=== PATIENT | male | born 1985 | race Two or more races ===

== ENCOUNTER 2016-07-20 00:56 | Emergency (ER) | payer BC, MEDICAID ==
--- NOTE | 2016-07-20 01:31 | EDM.PDOC ---
ED HPI GI/ABDOMINAL - General Chief Complaint: Gastrointestinal Problem Stated Complaint: VOMITING Time Seen by Provider: 07/20/16 01:25 Source: Reports: Patient History Limitations: Reports: No limitations - History of Present Illness INITIAL COMMENTS - FREE TEXT/NARRATIVE: This man came in complaining that today he's had some diarrhea and vomiting and a little bit of fever. He's had a cough for just a couple of days. He thinks maybe he has the flu. He is really here because he wants a work excuse said he missed work today. He feels like he can go back to work tomorrow and I think that to mean later today - Related Data Allergies/ADRs: Allergies Allergy/AdvReac Type Severity Reaction Status Date / Time No Known Allergies Allergy Verified 07/20/16 01:10 Home Meds: Home Meds Albuterol [Ventolin HFA] 2 puff INH Q4H PRN 06/20/16 [History] Acetaminophen 650 mg PO QID PRN 07/05/16 [History] Past Medical History Respiratory History: Reports: Asthma Genitourinary History: Reports: Renal calculus - Infectious Disease History Infectious Disease History: Reports: Chicken pox Social & Family History - Tobacco Use Smoking Status *Q: Current Some Day Smoker Years of Tobacco use: 10 Packs/Tins Daily: 0.5 Used Tobacco, but Quit: No Second Hand Smoke Exposure: Yes - Caffeine Use Caffeine Use: Reports: Coffee, Soda - Alcohol Use Days Per Week of Alcohol Use: 0 Number of Drinks Per Day: 1 Total Drinks Per Week: 0 - Recreational Drug Use Recreational Drug Use: No - Living Situation & Occupation Occupation: employed (R[employer] ED ROS GENERAL - Review of Systems Review Of Systems: ROS reveals no pertinent complaints other than HPI. ED EXAM, GI/ABD - Physical Exam Exam: See Below Exam Limited By: No limitations General Appearance: alert, WD/WN, no apparent distress Eyes: bilateral: normal appearance Throat/Mouth: Normal oropharynx Respiratory/Chest: lungs clear, other Cardiovascular: no murmur GI/Abdominal: non tender Neurological: alert, oriented Psychiatric: normal affect Skin Exam: Warm, Dry Course - Vital Signs Last Recorded V/S: Last Vital Signs Temp 36.6 C 07/20/16 01:15 Pulse 117 H 07/20/16 01:15 Resp 16 07/20/16 01:15 BP 144/101 H 07/20/16 01:15 Pulse Ox 99 07/20/16 01:15 Departure - Departure Time of Disposition: 01:30 Disposition: Home, Self-Care 01 Condition: fair Clinical Impression: Gastroenteritis Instructions: Viral Gastroenteritis, Adult Referrals: PCP,None [Primary Care Provider] - Forms: ED Department Discharge Additional Instructions: Rest drink plenty of liquids. Use Tylenol for aches and pains. Return to work as a measure feeling better
[2016-07-20 01:52] VITALS: BP 144/101
== END 2016-07-20 01:37 | disposition home or self-care (01) ==
LOC: JP.ED 00:56
DX: K52.9 Noninfective gastroenteritis and colitis, unspecified (principal); J45.909 Unspecified asthma, uncomplicated; F17.210 Nicotine dependence, cigarettes, uncomplicated
CPT/HCPCS: 99284

== ENCOUNTER 2016-08-16 21:53 | Emergency (ER) | payer BC, MEDICAID ==
[2016-08-16 22:28] VITALS: BP 130/81
--- NOTE | 2016-08-16 23:04 | EDM.PDOC ---
[id number] Time Seen by Provider: 08/16/16 22:45 Source: Reports: Patient History Limitations: Reports: No limitations - History of Present Illness INITIAL COMMENTS - FREE TEXT/NARRATIVE: 31-year-old male with chronic recurring dental problems has a recent first molar fracture of the left maxilla. He was too painful to go to work tonight. No facial swelling or fever. Severity: moderate Associated symptoms: Denies: fever/chills, nausea/vomiting - Related Data Allergies/ADRs: Allergies Allergy/AdvReac Type Severity Reaction Status Date / Time No Known Allergies Allergy Verified 08/16/16 22:45 Home Meds: Home Meds Albuterol [Ventolin HFA] 2 puff INH Q4H PRN 06/20/16 [History] Acetaminophen 650 mg PO QID PRN 07/05/16 [History] Past Medical History Respiratory History: Reports: Asthma Genitourinary History: Reports: Renal calculus - Infectious Disease History Infectious Disease History: Reports: Chicken pox Social & Family History - Tobacco Use Smoking Status *Q: Current Every Day Smoker Years of Tobacco use: 19 Packs/Tins Daily: 0.5 Used Tobacco, but Quit: No Second Hand Smoke Exposure: Yes - Caffeine Use Caffeine Use: Reports: Soda - Alcohol Use Days Per Week of Alcohol Use: 0 Number of Drinks Per Day: 1 Total Drinks Per Week: 0 - Recreational Drug Use Recreational Drug Use: No - Living Situation & Occupation 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 He does have what appears to be a recent fracture of the first molar left maxilla) Course - Vital Signs Last Recorded V/S: Last Vital Signs Temp 96.0 F 08/16/16 22:26 Pulse 90 08/16/16 22:26 Resp 16 08/16/16 22:26 BP 130/81 08/16/16 22:26 Pulse Ox 98 08/16/16 22:26 - Re-Assessments/Exams Free Text/Narrative Re-Assessment/Exam: 08/16/16 23:02 Patient will be placed on penicillin VK 4 times daily, encouraged to take ibuprofen or naproxen and he was given 10 hydrocodone for extra pain control. He needs to see a dentist Departure - Departure Time of Disposition: 23:32 Disposition: Home, Self-Care 01 Condition: good Clinical Impression: Pain due to dental caries Instructions: Dental Abscess, [id number], Tooth Injuries Referrals: PCP,None [Primary Care Provider] - Forms: ED Department Discharge Care Plan Goals: Take antibiotic 4 times a day, ibuprofen or naproxen will help and add stronger pain medication if needed. You need to see a dentist as soon as possible.
== END 2016-08-16 23:15 | disposition home or self-care (01) ==
LOC: JP.ED 21:53
DX: K02.9 Dental caries, unspecified (principal); J45.909 Unspecified asthma, uncomplicated; F17.210 Nicotine dependence, cigarettes, uncomplicated; Z87.442 Personal history of urinary calculi
CPT/HCPCS: 99283

== ENCOUNTER 2016-09-16 18:24 | Emergency (ER) | payer BC, MEDICAID ==
[2016-09-16 18:54] VITALS: BP 153/84
--- NOTE | 2016-09-16 19:15 | EDM.PDOC ---
ED HPI ENT - General Chief Complaint: ENT Problem Stated Complaint: TOOTHACHE Time Seen by Provider: 09/16/16 19:05 Source: Reports: Patient History Limitations: Reports: No limitations - History of Present Illness INITIAL COMMENTS - FREE TEXT/NARRATIVE: 31-year-old male with recurrent dental problems has an acute flare of his left maxillary molars over the past 1 to 2 days. He needs to go to the dentist tomorrow and needs a note to be off work. No fevers or chills, no swelling. Severity: mild Quality: Reports: Ache - Related Data Allergies/ADRs: Allergies Allergy/AdvReac Type Severity Reaction Status Date / Time No Known Allergies Allergy Verified 09/16/16 18:47 Home Meds: Home Meds Albuterol [Ventolin HFA] 2 puff INH Q4H PRN 06/20/16 [History] Acetaminophen 650 mg PO QID PRN 07/05/16 [History] Past Medical History Respiratory History: Reports: Asthma Genitourinary History: Reports: Renal calculus - Infectious Disease History Infectious Disease History: Reports: Chicken pox Social & Family History - Tobacco Use Smoking Status *Q: Current Every Day Smoker Years of Tobacco use: 11 Packs/Tins Daily: 0.5 Used Tobacco, but Quit: No Second Hand Smoke Exposure: Yes - Caffeine Use Caffeine Use: Reports: Coffee, Soda - Alcohol Use Days Per Week of Alcohol Use: 2 Number of Drinks Per Day: 2 Total Drinks Per Week: 4 - Recreational Drug Use Recreational Drug Use: No - Living Situation & Occupation Occupation: employed (R[employer] ED ROS ENT - Review of Systems Review Of Systems: See Below Constitutional: Denies: fever Respiratory: Denies: Shortness of Breath GI/Abdominal: Denies: Abdominal pain, Nausea, Vomiting Neurological: Reports: Headache ED EXAM, ENT - Physical Exam Exam: See Below Exam Limited By: No limitations General Appearance: alert, no apparent distress Mouth/Throat: Other (The left second molar is deeply decayed and there is some erythema around the tooth) Course - Vital Signs Last Recorded V/S: Last Vital Signs Temp 97.7 F 09/16/16 18:52 Pulse 102 H 09/16/16 18:52 Resp 16 09/16/16 18:52 BP 153/84 H 09/16/16 18:52 Pulse Ox 97 09/16/16 18:52 - Re-Assessments/Exams Free Text/Narrative Re-Assessment/Exam: 09/16/16 19:14 Patient was placed on penicillin 500 mg 4 times a day, given 6 hydrocodone to take tonight and he is going to go to the dentist tomorrow. He was also supplied a work note. Departure - Departure Time of Disposition: 19:19 Disposition: Home, Self-Care 01 Condition: good Clinical Impression: Dental caries, Dental abscess Instructions: Dental Caries, Dental Abscess, [id number] Referrals: PCP,None [Primary Care Provider] - Forms: ED Department Discharge Care Plan Goals: Take medications as prescribed and see the dentist tomorrow if possible
== END 2016-09-16 19:19 | disposition home or self-care (01) ==
LOC: JP.ED 18:24
DX: K04.7 Periapical abscess without sinus (principal); K02.9 Dental caries, unspecified; F17.210 Nicotine dependence, cigarettes, uncomplicated; J45.909 Unspecified asthma, uncomplicated
CPT/HCPCS: 99283

== ENCOUNTER 2016-10-26 16:52 | Emergency (ER) | payer BC, MEDICAID ==
[2016-10-26 17:14] VITALS: BP 159/98
--- NOTE | 2016-10-26 17:33 | EDM.PDOC ---
ED HPI GENERAL MEDICAL PROBLEM - General Chief Complaint: Gastrointestinal Problem Stated Complaint: ILLNESS Time Seen by Provider: 10/26/16 17:30 Source of Information: Reports: Patient History Limitations: Reports: No Limitations - History of Present Illness INITIAL COMMENTS - FREE TEXT/NARRATIVE: Pt with report of diarrhea x 3 today. C/O abdominal cramping. Denies fever or dizziness. Needs a note for work. Denies nausea or vomiting. Onset: Today Duration: Intermittent Location: Reports: Abdomen Quality: Reports: Other (cramping) Severity: Mild Improves with: Reports: None Worsens with: Reports: Eating Associated Symptoms: Reports: No Other Symptoms Abdominal Pain Score (Numeric/FACES): 2 - Related Data Allergies Allergy/AdvReac Type Severity Reaction Status Date / Time No Known Allergies Allergy Verified 10/26/16 17:27 Home Meds: Home Meds Albuterol [Ventolin HFA] 2 puff INH Q4H PRN 06/20/16 [History] Past Medical History Respiratory History: Reports: Asthma Genitourinary History: Reports: Renal Calculus - Infectious Disease History Infectious Disease History: Reports: Chicken Pox Social & Family History - Tobacco Use Smoking Status *Q: Current Every Day Smoker Years of Tobacco use: 11 Packs/Tins Daily: 0.5 Used Tobacco, but Quit: No Second Hand Smoke Exposure: Yes - Caffeine Use Caffeine Use: Reports: Coffee, Soda - Alcohol Use Days Per Week of Alcohol Use: 2 Number of Drinks Per Day: 2 Total Drinks Per Week: 4 - Recreational Drug Use Recreational Drug Use: No - Living Situation & Occupation Occupation: Employed ED ROS GENERAL - Review of Systems Review Of Systems: See Below Constitutional: Reports: No Symptoms HEENT: Reports: No Symptoms Respiratory: Reports: No Symptoms Cardiovascular: Reports: No Symptoms GI/Abdominal: Reports: Diarrhea, Other (cramping) : Reports: No Symptoms Musculoskeletal: Reports: No Symptoms ED EXAM, GI/ABD - Physical Exam Exam: See Below Exam Limited By: No Limitations General Appearance: Alert, WD/WN, No Apparent Distress Throat/Mouth: Normal Inspection, Normal Lips, Normal Teeth, Normal Gums, Normal Oropharynx, Normal Voice, No Airway Compromise Head: Atraumatic, Normocephalic Neck: Normal Inspection, Supple, Non-Tender, Full Range of Motion Respiratory/Chest: No Respiratory Distress, Lungs Clear, Normal Breath Sounds, No Accessory Muscle Use, Chest Non-Tender Cardiovascular: Normal Peripheral Pulses, Regular Rate, Rhythm, No Edema, No Gallop, No JVD, No Murmur, No Rub GI/Abdominal: Normal Bowel Sounds, Soft, Non-Tender, No Organomegaly, No Distention, No Abnormal Bruit, No Mass Course - Vital Signs Last Recorded V/S: Last Vital Signs Temp 97.9 F 10/26/16 17:35 Pulse 92 10/26/16 17:35 Resp 20 10/26/16 17:35 BP 159/98 H 10/26/16 17:35 Pulse Ox 100 10/26/16 17:35 - Orders/Labs/Meds Labs: Laboratory Tests 10/26/16 10/26/16 Range/Units 17:29 17:29 WBC 7.4 (4.5-11.0) K/uL RBC 5.40 (4.30-5.90) M/uL Hgb 17.0 H (12.0-15.0) g/dL Hct 48.0 (40.0-54.0) % MCV 89 (80-98) fL MCH 32 H (27-31) pg MCHC 35 (32-36) % Plt Count 216 (150-400) K/uL Neut % (Auto) 47 (36-66) % Lymph % (Auto) 39 (24-44) % Mobile % (Auto) 11 H (2-6) % Eos % (Auto) 2 (2-4) % Baso % (Auto) 1 (0-1) % Sodium 139 L (140-148) mmol/L Potassium 3.8 (3.6-5.2) mmol/L Chloride 107 (100-108) mmol/L Carbon Dioxide 23 (21-32) mmol/L Anion Gap 12.8 (5.0-14.0) mmol/L Departure - Departure Time of Disposition: 17:59 Disposition: Home, Self-Care 01 Condition: good Clinical Impression: Diarrhea Qualifiers: Diarrhea type: presumed infectious Qualified Code(s): A09 - Infectious gastroenteritis and colitis, unspecified - Discharge Information Instructions: Dehydration, Adult, [id number] Referrals: PCP,None [Primary Care Provider] - Forms: ED Department Discharge Additional Instructions: CBC WNL, Lytes with sodium at 139. Encouraged oral hydration. Note given excusing from work. To return for stool cultures if diarrhea lasting over 7 days. - Problem List & Annotations (1) Diarrhea SNOMED Code(s): 02731813 Code(s): R19.7 - DIARRHEA, UNSPECIFIED Status: Acute Priority: Low Current Visit: Yes Qualifiers: Diarrhea type: presumed infectious Qualified Code(s): A09 - Infectious gastroenteritis and colitis, unspecified
== END 2016-10-26 18:25 | disposition home or self-care (01) ==
LOC: JP.ED 16:52
DX: A09 Infectious gastroenteritis and colitis, unspecified (principal); J45.909 Unspecified asthma, uncomplicated; F17.210 Nicotine dependence, cigarettes, uncomplicated
CPT/HCPCS: 36415; 80051; 85025; 99284

== ENCOUNTER 2016-11-10 18:08 | Emergency (ER) | payer BC, MEDICAID ==
[2016-11-10 19:35] VITALS: BP 160/101
[2016-11-10] MEDS ORDERED: Bupivacaine 0.5%/EPINEPHrine 1:200,000 1.8 ML Cartridge INJECT ONE (19:51)
--- NOTE | 2016-11-10 20:08 | EDM.PDOC ---
ED HPI GENERAL MEDICAL PROBLEM - General Chief Complaint: General Stated Complaint: LT TOP TOOTH ISSUES Time Seen by Provider: 11/10/16 19:45 Source of Information: Reports: Patient History Limitations: Reports: No Limitations - History of Present Illness INITIAL COMMENTS - FREE TEXT/NARRATIVE: Casey is a 31 year old male who presents to the ED today with c/o left upper tooth pain unrelieved with Tylenol. Patient is scheduled to have tooth extracted on Saturday. Patient has not been on recent antibiotics. Patient denies any fever/chills/nausea/vomiting. Left Upper Tooth/Teeth Pain Score (Numeric/FACES): 7 - Related Data Allergies Allergy/AdvReac Type Severity Reaction Status Date / Time No Known Allergies Allergy Verified 11/10/16 19:42 Home Meds: Home Meds Albuterol [Ventolin HFA] 2 puff INH Q4H PRN 06/20/16 [History] Past Medical History Cardiovascular History: Reports: Hypertension Respiratory History: Reports: Asthma Gastrointestinal History: Reports: GERD Genitourinary History: Reports: Renal Calculus - Infectious Disease History Infectious Disease History: Reports: Chicken Pox Social & Family History - Tobacco Use Smoking Status *Q: Current Every Day Smoker Years of Tobacco use: 19 Packs/Tins Daily: 0.5 Used Tobacco, but Quit: No Second Hand Smoke Exposure: Yes - Caffeine Use Caffeine Use: Reports: Soda - Alcohol Use Days Per Week of Alcohol Use: 2 Number of Drinks Per Day: 2 Total Drinks Per Week: 4 - Recreational Drug Use Recreational Drug Use: No - Living Situation & Occupation Occupation: Employed ED ROS GENERAL - Review of Systems Review Of Systems: ROS reveals no pertinent complaints other than HPI. ED EXAM, GENERAL - Physical Exam Exam: See Below Exam Limited By: No Limitations General Appearance: Alert, WD/WN, Mild Distress (secondary to pain) Ears: Normal External Exam Ear Exam: Left Ear: TM normal Throat/Mouth: Normal Oropharynx, Other (mild erythema and swelling noted to left upper lateral gum line, decayed teeth, broken tooth number 13, tender to tapping) Head: Atraumatic Neck: Normal Inspection, Supple, Non-Tender, Other (no lymphadenopathy, no fabiola's angina) Respiratory/Chest: No Respiratory Distress, Lungs Clear Cardiovascular: Normal Peripheral Pulses, Regular Rate, Rhythm, No Murmur Extremities: Mottled Neurological: Alert, Oriented Psychiatric: Normal Affect, Normal Mood Skin Exam: Warm, Dry, Intact Lymphatic: No Adenopathy ED GENERAL MEDICAL PROCEDURES - Additional/Other Procedure(s) Other (Free Text) Procedure(s): Dental block performed after risks/benefits discussed with patient and verbal consent obtained, 1.8 ml of marcaine with epi injected up along left lateral upper gumline, patient tolerated well and achieved good relief with no adverse effects. Course - Vital Signs Last Recorded V/S: Last Vital Signs Temp 36.2 C 11/10/16 19:44 Pulse 93 11/10/16 19:44 Resp 16 11/10/16 19:44 BP 160/101 H 11/10/16 19:44 Pulse Ox 100 11/10/16 19:44 Casey is a 31 year old male who presents to the ED today with c/o left upper tooth pain. Please refer to HPI and focused exam. Patient on exam is well hydrated, he is non-toxic appearing. Dental block done with good relief. NO definable drainable abscess at this time, no presence of facial cellulitis. Will start patient on amoxicillin, take ibuprofen 600 mg every 6 hours, [place] for severe pain, narcotic safety discussed. Reasons to return to the ED discussed. Patient to see dentist as scheduled on Saturday. Patient agreeable to plan of care and questions were answered prior to discharge. Patient discharged in stable condition. - Orders/Labs/Meds Meds: Medications Discontinued Medications Generic Name Dose Route Start Last Admin Trade Name Verito PRN Reason Stop Dose Admin Bupivacaine HCl/Epinephrine Bitart 1.8 ml 11/10/16 19:51 11/10/16 19:59 Marcaine 0.5%/Epinephrine 1:200,000 INJECT 11/10/16 19:52 1.8 ml ONETIME ONE Administration Departure - Departure Time of Disposition: 20:30 Disposition: Home, Self-Care 01 Condition: Good Clinical Impression: Pain, dental, Dental abscess - Discharge Information Instructions: Dental Abscess Forms: ED Department Discharge Additional Instructions: Take 600 mg of Ibuprofen every 6 hours scheduled for the next 3 days. Take [place] for severe pain which is a narcotic, no driving if you take it. See dentist as scheduled on Saturday. Take amoxicillin as prescribed.
== END 2016-11-10 20:24 | disposition home or self-care (01) ==
LOC: JP.ED 18:08
DX: K04.7 Periapical abscess without sinus (principal); I10 Essential (primary) hypertension; J45.909 Unspecified asthma, uncomplicated; K21.9 Gastro-esophageal reflux disease without esophagitis; F17.210 Nicotine dependence, cigarettes, uncomplicated; Z87.442 Personal history of urinary calculi
CPT/HCPCS: 64400; 99283-25

== ENCOUNTER 2016-12-21 23:29 | Emergency (ER) | payer BC, MEDICAID ==
[2016-12-22] MEDS ORDERED: Ketorolac 60 MG/2 ML SDV IM ONE (00:10)
--- NOTE | 2016-12-22 00:14 | EDM.PDOC ---
ED HPI GENERAL MEDICAL PROBLEM - General Chief Complaint: ENT Problem Stated Complaint: TOOTHACHE Time Seen by Provider: 12/21/16 23:31 Source of Information: Reports: Patient, Old Records, RN Notes Reviewed History Limitations: Reports: No Limitations - History of Present Illness INITIAL COMMENTS - FREE TEXT/NARRATIVE: 31-year-old gentleman presents emergency department today complaint of dental pain, he has a broken tooth below the gumline that happened yesterday when he is eating [employer] ibuprofen is not providing sufficient relief Tooth/Teeth Pain Score (Numeric/FACES): 10 - Related Data Allergies Allergy/AdvReac Type Severity Reaction Status Date / Time No Known Allergies Allergy Verified 12/21/16 23:52 Home Meds: Home Meds Albuterol [Ventolin HFA] 2 puff INH Q4H PRN 06/20/16 [History] Past Medical History Cardiovascular History: Reports: Hypertension Respiratory History: Reports: Asthma Gastrointestinal History: Reports: GERD Genitourinary History: Reports: Renal Calculus - Infectious Disease History Infectious Disease History: Reports: Chicken Pox Social & Family History - Tobacco Use Smoking Status *Q: Current Every Day Smoker Years of Tobacco use: 19 Packs/Tins Daily: 0.5 Used Tobacco, but Quit: No Second Hand Smoke Exposure: Yes - Caffeine Use Caffeine Use: Reports: Soda - Alcohol Use Days Per Week of Alcohol Use: 2 Number of Drinks Per Day: 2 Total Drinks Per Week: 4 - Recreational Drug Use Recreational Drug Use: No - Living Situation & Occupation Occupation: Employed ED ROS ENT - Review of Systems Review Of Systems: See Below Constitutional: Denies: Fever, Chills HEENT: Reports: Dental Pain Respiratory: Reports: No Symptoms Cardiovascular: Reports: No Symptoms ED EXAM, ENT - Physical Exam Exam: See Below Exam Limited By: No Limitations General Appearance: Alert Eye Exam: Bilateral Eye: Normal Inspection Mouth/Throat: Normal Inspection, Normal Lips, Normal Oropharynx, Dental Pain, Dental Tenderness, Dental Trauma. No: Dental Abcess Head: Atraumatic, Normocephalic Neck: Normal Inspection, Supple, Non-Tender, Full Range of Motion Course - Vital Signs Last Recorded V/S: Last Vital Signs Temp 97.6 F 12/21/16 23:56 Pulse 97 12/21/16 23:56 Resp 18 12/21/16 23:56 BP 160/100 H 12/21/16 23:56 Pulse Ox 99 12/21/16 23:56 - Orders/Labs/Meds Meds: Medications Discontinued Medications Generic Name Dose Route Start Last Admin Trade Name Verito PRN Reason Stop Dose Admin Ketorolac Tromethamine 60 mg 12/22/16 00:10 Toradol IM 12/22/16 00:11 ONETIME ONE Departure - Departure Time of Disposition: 00:13 Disposition: Home, Self-Care 01 Condition: Good Clinical Impression: Pain, dental - Discharge Information Forms: ED Department Discharge Additional Instructions: Use ibuprofen for baseline pain control use hydrocodone for breakthrough pain, please keep your appointment with dentistry next week - Assessment/Plan Plan: Assessment Acuity = acute Site and laterality = tooth trauma #3 Etiology = dental caries Manifestations = pain Location of injury = Home Lab values = none Plan Total #10 hydrocodone provided for in combination with Toradol he will follow- up with his dentist next week Patient was in agreement with the plan all questions were answered, they were instructed to return to the emergency department or call for worsening symptoms. This note was dictated using [employer] voice recognition software please call with any questions.
[2016-12-22 01:39] VITALS: BP 160/100
== END 2016-12-22 00:29 | disposition home or self-care (01) ==
LOC: JP.ED 23:29
DX: K02.9 Dental caries, unspecified (principal); K21.9 Gastro-esophageal reflux disease without esophagitis; F17.210 Nicotine dependence, cigarettes, uncomplicated; I10 Essential (primary) hypertension; J45.909 Unspecified asthma, uncomplicated; Z87.442 Personal history of urinary calculi
CPT/HCPCS: 96372; 99283; J1885

== ENCOUNTER 2017-05-27 21:18 | Emergency (ER) | payer BC, MEDICAID ==
[2017-05-27 21:38] VITALS: BP 142/92
--- NOTE | 2017-05-27 22:03 | EDM.PDOC ---
ED HPI GENERAL MEDICAL PROBLEM - General Chief Complaint: Lower Extremity Injury/Pain Stated Complaint: HURT KNEE Time Seen by Provider: 05/27/17 21:57 Source of Information: Reports: Patient, RN Notes Reviewed History Limitations: Reports: No Limitations - History of Present Illness INITIAL COMMENTS - FREE TEXT/NARRATIVE: 31-year-old gentleman presents emergency department today with complaint of left knee pain, he states he injured himself earlier today he was wrestling he heard pop in his knee he can ambulate but it is painful no swelling no bruising knee;left Pain Score (Numeric/FACES): 3 - Related Data Allergies Allergy/AdvReac Type Severity Reaction Status Date / Time No Known Allergies Allergy Verified 05/27/17 21:39 Home Meds: Home Meds Albuterol [Ventolin HFA] 2 puff INH Q4H PRN 06/20/16 [History] Past Medical History Cardiovascular History: Reports: Hypertension Respiratory History: Reports: Asthma Gastrointestinal History: Reports: GERD Genitourinary History: Reports: Renal Calculus - Infectious Disease History Infectious Disease History: Reports: Chicken Pox Social & Family History - Tobacco Use Smoking Status *Q: Current Every Day Smoker Years of Tobacco use: 19 Packs/Tins Daily: 0.5 Used Tobacco, but Quit: No Second Hand Smoke Exposure: Yes - Caffeine Use Caffeine Use: Reports: Soda - Alcohol Use Days Per Week of Alcohol Use: 2 Number of Drinks Per Day: 2 Total Drinks Per Week: 4 - Recreational Drug Use Recreational Drug Use: No - Living Situation & Occupation Occupation: Employed Review of Systems - Review of Systems Review Of Systems: See Below Constitutional: Reports: No Symptoms Musculoskeletal: Reports: Joint Pain (Left knee pain) ED EXAM, GENERAL - Physical Exam Exam: See Below Free Text/Narrative:: Examination of left knee on appreciate any erythema there is no edema noted difficult for an exam as he is tender to palpation along the joint line both sides does not tolerate of varus valgus maneuver does not tolerate Alexia's maneuver he can bear weight but he favors the right leg Exam Limited By: No Limitations General Appearance: Alert, WD/WN, No Apparent Distress Course - Vital Signs Last Recorded V/S: Last Vital Signs Temp 97.1 F 05/27/17 21:37 Pulse 101 H 05/27/17 21:37 Resp 18 01/08/18 21:37 BP 142/92 H 05/27/17 21:37 Pulse Ox 98 05/27/17 21:37 - Orders/Labs/Meds Orders: Active Orders 24 hr Category Date Time Status DME for Discharge [COMM] Urgent Oth 05/27/17 22:01 Ordered Departure - Departure Time of Disposition: 22:34 Disposition: Home, Self-Care 01 Condition: Good Clinical Impression: Strain of left knee Qualifiers: Encounter type: initial encounter Qualified Code(s): S86.912A - Strain of unspecified muscle(s) and tendon(s) at lower leg level, left leg, initial encounter - Discharge Information Referrals: PCP,None [Primary Care Provider] - Forms: ED Department Discharge Additional Instructions: Continue to use crutches and knee immobilizer as needed for comfort, use ibuprofen as needed for pain control, Please followup with your primary care provider in 3-5 days if not better, please call return to the emergency department with worsening of symptoms. - My Orders Last 24 Hours: My Active Orders 05/27/17 22:01 DME for Discharge [COMM] Urgent - Assessment/Plan Last 24 Hours: My Active Orders 05/27/17 22:01 DME for Discharge [COMM] Urgent Plan: Assessment Acuity = acute Site and laterality = left knee strain Etiology = secondary to trauma Manifestations = pain Location of injury = Home Lab values = none Plan I did offer further evaluation such as an x-ray he declined due to cost concerns he was placed in a knee immobilizer and crutches which provided good improvement pain medications ibuprofen 600 mg by mouth 4 times a day when necessary total #30 tablets provided follow-up with primary care in 3-5 days for reevaluation This note was dictated using [employer] voice recognition software please call with any questions on syntax or shanice.
== END 2017-05-27 22:44 | disposition home or self-care (01) ==
LOC: JP.ED 21:18
DX: S86.912A Strain of unspecified muscle(s) and tendon(s) at lower leg level, left leg, initial encounter (principal); F17.210 Nicotine dependence, cigarettes, uncomplicated; I10 Essential (primary) hypertension; J45.909 Unspecified asthma, uncomplicated; X58.XXXA Exposure to other specified factors, initial encounter; Y93.72 Activity, wrestling
CPT/HCPCS: 99282; 99283

== ENCOUNTER 2019-11-28 14:25 | Emergency (ER) | payer MEDICAID ==
--- NOTE | 2019-11-28 15:46 | EDM.PDOC ---
ED HPI GENERAL MEDICAL PROBLEM - General Chief Complaint: General Stated Complaint: LOWER L TOOTH PAIN Time Seen by Provider: 11/28/19 15:40 Source of Information: Reports: Patient History Limitations: Reports: No Limitations - History of Present Illness INITIAL COMMENTS - FREE TEXT/NARRATIVE: Patient presents for evaluation of 2 days of severe left mandibular tooth pain. He has a tooth which is broken in half. He was seen by some sort of dental facility 2 days ago, started on amoxicillin, told to follow-up with dental team but extraction of the tooth, which apparently has been recommended, cannot likely occur until late February. Onset: Gradual Duration: Day(s): (2) Location: Reports: Head Quality: Reports: Ache, Throbbing Severity: Moderate Improves with: Reports: None Worsens with: Reports: Eating, Movement Left Lower Oral/Mouth Pain Score (Numeric/FACES): 8 - Related Data Allergies Allergy/AdvReac Type Severity Reaction Status Date / Time No Known Allergies Allergy Verified 11/28/19 14:50 Home Meds: Home Meds Albuterol [Ventolin HFA] 2 puff INH Q4H PRN 06/20/16 [History] Ibuprofen [Advil] 400 mg PO Q6H PRN 11/28/19 [History] Past Medical History Cardiovascular History: Reports: Hypertension Respiratory History: Reports: Asthma Gastrointestinal History: Reports: GERD Genitourinary History: Reports: Renal Calculus Musculoskeletal History: Reports: Other (See Below) Other Musculoskeletal History: surgery on right arm - Infectious Disease History Infectious Disease History: Reports: Chicken Pox Social & Family History - Tobacco Use Smoking Status *Q: Current Every Day Smoker Years of Tobacco use: 20 Packs/Tins Daily: 0.5 - Caffeine Use Caffeine Use: Reports: Coffee, Energy Drinks, Soda - Recreational Drug Use Recreational Drug Use: No - Living Situation & Occupation Occupation: Employed ED ROS GENERAL - Review of Systems Review Of Systems: Comprehensive ROS is negative, except as noted in HPI. ED EXAM, GENERAL - Physical Exam Exam: See Below Free Text/Narrative:: This is an uncomfortable appearing male staring at the floor and moaning when I enter the room. Exam Limited By: No Limitations General Appearance: Moderate Distress Throat/Mouth: Other (Tooth #21 is fractured in half and has exposed dentin. The gum tissue shows chronic irritation change everywhere. There are other teeth decayed to the gumline.) Neck: Normal Inspection Course - Vital Signs Last Recorded V/S: Last Vital Signs Temp 36.2 C 11/28/19 14:48 Pulse 99 11/28/19 16:12 Resp 18 11/28/19 14:48 BP 136/96 H 11/28/19 16:12 Pulse Ox 98 11/28/19 14:48 - Orders/Labs/Meds Meds: Medications Discontinued Medications Generic Name Dose Route Start Last Admin Trade Name Verito PRN Reason Stop Dose Admin Bupivacaine HCl/Epinephrine Bitart 1.8 ml 11/28/19 15:47 11/28/19 16:19 Marcaine 0.5%/Epinephrine 1:200,000 INJECT 11/28/19 15:48 1.8 ml ONETIME ONE Administration Bupivacaine HCl/Epinephrine Bitart Confirm 11/28/19 16:03 Marcaine 0.5%/Epinephrine 1:200,000 Administered 11/28/19 16:04 Dose 1.8 ml .ROUTE .STK-MED ONE - Re-Assessments/Exams Free Text/Narrative Re-Assessment/Exam: 11/28/19 15:49 Patient is uncomfortable and is supposed to work at 5:00 today. I discussed doing a dental block and he is interested. Bupivacaine 0.5% with epinephrine was used to infiltrate the affected area. Within 5 minutes following the injection, his pain was improved 50%. I will have him continue to use ibuprofen 800 mg 3 times a day, take the previously prescribed amoxicillin. I will send him with a prescription for 12 tramadol 50 mg tablets but discussed with him that nothing will make him pain-free. He is aware of that. When the nurse returned to the room to give him his discharge information he then stated that since the injection of bupivacaine, his pain is now worse than before the injection. I came and reviewed things with him and stated that I have no idea how that could be the case especially since he was injected in several sites along the left mandible. My previous recommendations for care remain and he should contact his dental team as discussed. 11/28/19 19:21 Departure - Departure Time of Disposition: 16:11 Disposition: Home, Self-Care 01 Condition: Good Clinical Impression: Pain due to dental caries - Discharge Information Instructions: Preventive Dental Care, Adult Referrals: PCP,None [Primary Care Provider] - Forms: ED Department Discharge Additional Instructions: Continue ibuprofen 800 mg 3 times a day. Salt water mouth rinses 3 times a day will be helpful. The Novocain shot you were given should last around 6 hours. Use tramadol as needed for more intense pain but nothing will make you pain-free unfortunately. Follow-up with your dental team as discussed. Sepsis Event Note (ED) - Evaluation Sepsis Screening Result: No Definite Risk - Focused Exam Vital Signs: Vital Signs Temp Pulse Resp BP Pulse Ox 11/28/19 16:12 99 136/96 H 11/28/19 14:48 36.2 C 92 18 157/105 H 98 11/28/19 14:39 36.2 C 92 18 157/105 H 98
[2019-11-28] MEDS ORDERED: Bupivacaine 0.5%/EPINEPHrine 1:200,000 1.8 ML Cartridge INJECT ONE (15:47)
[2019-11-28] MEDS ORDERED: Bupivacaine 0.5%/EPINEPHrine 1:200,000 1.8 ML Cartridge ONE (16:03)
[2019-11-28 16:12] VITALS: BP 136/96; PULSE 99
== END 2019-11-28 16:36 | disposition home or self-care (01) ==
LOC: JP.ED 14:25
DX: K02.9 Dental caries, unspecified (principal); K03.81 Cracked tooth; I10 Essential (primary) hypertension; J45.909 Unspecified asthma, uncomplicated; F17.210 Nicotine dependence, cigarettes, uncomplicated
CPT/HCPCS: 64400; 99282; J3490

== ENCOUNTER 2021-08-17 19:19 | Emergency (ER) | payer MEDICAID ==
[2021-08-17 19:54] VITALS: BP 167/109; PULSE 93
[2021-08-17] MEDS ORDERED: Benzocaine 10% Dental Gel 9 GM Tube MUCMEM ONE (20:03)
[2021-08-17] MEDS ORDERED: Bupivacaine 0.25% 10 ML SDV INJECT ONE (20:04)
[2021-08-17] MEDS ORDERED: Lidocaine 1% with EPINEPHrine 1:100,000 50 ML MDV INJECT ONE (20:05)
== END 2021-08-17 20:36 | disposition home or self-care (01) ==
LOC: JP.ED 19:19
DX: K04.7 Periapical abscess without sinus (principal); K02.9 Dental caries, unspecified; I10 Essential (primary) hypertension; Z72.0 Tobacco use
CPT/HCPCS: 64400; 99282; 99282-25; A9270-GY; J3490

== ENCOUNTER 2021-11-24 14:51 | Emergency (ER) | payer MEDICAID ==
[2021-11-24 15:45] VITALS: BP 151/117; PULSE 108
[2021-11-24] MEDS ORDERED: Ibuprofen 600 MG Tab PO ONE (16:14)
== END 2021-11-24 17:14 | disposition home or self-care (01) ==
LOC: JP.ED 14:51
DX: M54.16 Radiculopathy, lumbar region (principal); J45.909 Unspecified asthma, uncomplicated; I10 Essential (primary) hypertension; F17.210 Nicotine dependence, cigarettes, uncomplicated
CPT/HCPCS: 99283; A9270; 99282

== ENCOUNTER 2022-04-22 13:22 | Emergency (ER) | payer MEDICAID ==
[2022-04-22 14:03] VITALS: BP 157/98; PULSE 114
== END 2022-04-22 15:12 | disposition home or self-care (01) ==
LOC: JP.ED 13:22
DX: L24.0 Irritant contact dermatitis due to detergents (principal); I10 Essential (primary) hypertension
CPT/HCPCS: 99282

== ENCOUNTER 2022-05-13 02:35 | Emergency (ER) | payer MEDICAID ==
[2022-05-13 03:41] LABS: ESTIMATED GFR 66 mL/min (>60)
[2022-05-13 03:56] LABS: CORONAVIRUS COVID-19 NAA NEGATIVE (NEGATIVE)
[2022-05-13] MEDS ORDERED: Furosemide 40 MG/4 ML VIAL IVPUSH ONE (03:57)
[2022-05-13] MEDS ORDERED: Sodium Chloride 0.9% 10 ML Syringe FLUSH PRN (03:57)
[2022-05-13] MEDS ORDERED: Heparin Sodium 5,000 Units/ML Vial IVPUSH ONE (04:00)
[2022-05-13] MEDS ORDERED: Heparin Sodium/D5W 25,000 UNITS/500 ML BAG IV SCH (04:00)
[2022-05-13] MEDS ORDERED: Metoprolol Tartrate 25 MG Tab PO ONE (04:19)
[2022-05-13 04:23] VITALS: PULSE 113
[2022-05-13 04:36] VITALS: BP 173/129
== END 2022-05-13 05:02 ==
LOC: JP.ED 02:35
DX: J90 Pleural effusion, not elsewhere classified (principal); I11.0 Hypertensive heart disease with heart failure; I50.9 Heart failure, unspecified; R77.8 Other specified abnormalities of plasma proteins; F15.90 Other stimulant use, unspecified, uncomplicated; Z20.822 Contact with and (suspected) exposure to COVID-19
CPT/HCPCS: 0241U; 36415; 51702; 71046; 80053; 80305-QW; 80307; 81001; 83690; 83735; 83880; 84484; 85025; 85730; 93005; 96365; 96375; 96376; 99285-25; A9270-GY; J1644; J1940; J3490

== ENCOUNTER 2023-06-14 16:43 | Emergency (ER) | payer MEDICAID ==
[2023-06-14 17:10] VITALS: BP 138/95; PULSE 63
[2023-06-14 17:55] LABS: BASOPHILS ABSOLUTE AUTO 0.05 K/uL (0.00-0.10); BASOPHILS PERCENT AUTO 0.7 % (0.1-1.3); EOSINOPHILS ABSOLUTE AUTO 0.03 K/uL (0.00-0.40); EOSINOPHILS PERCENT AUTO 0.4 % (0.0-5.4); HEMATOCRIT 49.2 % (38.4-49.7); HEMOGLOBIN 17.4 g/dL (12.9-16.9); IMMATURE GRAN ABSOLUTE AUTO 0.05 K/uL (0.00-0.23); IMMATURE GRAN PERCENT AUTO 0.7 % (0.0-0.7); LYMPHOCYTES ABSOLUTE AUTO 0.35 K/uL (0.8-3.3); MEAN CORPUSCULAR HGB CONC 35.4 g/dL (31.6-35.5); MEAN CORPUSCULAR VOLUME 93.4 fL (81.4-99.0); MONOCYTES ABSOLUTE AUTO 0.88 K/uL (0.20-0.90); MONOCYTES PERCENT AUTO 12.7 % (3.3-12.6); NEUTROPHILS ABSOLUTE AUTO 5.59 K/uL (1.0-7.6); NEUTROPHILS PERCENT AUTO 80.5 % (40.0-78.1); PLATELET COUNT,PLT 120 K/uL (130-375); RED BLOOD CELL COUNT 5.27 M/uL (4.14-5.76)
[2023-06-14 18:04] LABS: CORONAVIRUS COVID-19 NAA NEGATIVE (NEGATIVE); INFLUENZA A NAA POSITIVE (NEGATIVE); INFLUENZA B NAA NEGATIVE (NEGATIVE); RESPIRATORY SYNCYTIAL VIR NAA NEGATIVE (NEGATIVE)
[2023-06-14] MEDS ORDERED: Acetaminophen 500 MG Tab PO ONE (18:06)
[2023-06-14 18:15] LABS: A/G RATIO 0.9 (1.2-2.2); ALANINE AMINOTRANSFERASE,ALT 35 U/L (12-78); ALBUMIN 3.2 g/dL (3.4-5.0); ALKALINE PHOSPHATASE 120 U/L (46-116); ASPARTATE AMNIOTRANSFERASE,AST 40 U/L (15-37); BILIRUBIN TOTAL 3.2 mg/dL (0.2-1.0); BLOOD UREA NITROGEN,BUN 9 mg/dL (7-18); CALCIUM 8.4 mg/dL (8.5-10.1); CARBON DIOXIDE,CO2 23 mmol/L (21-32); CHLORIDE,CL 99 mmol/L (100-108); CREATININE 1.2 mg/dL (0.8-1.3); ESTIMATED GFR 79 mL/min (>60); GLUCOSE RANDOM 130 mg/dL (74-106); POTASSIUM,K 4.5 mmol/L (3.6-5.2); PROTEIN TOTAL,TP 6.8 g/dL (6.4-8.2); SODIUM,NA 133 mmol/L (140-148)
[2023-06-14 18:17] LABS: ANION GAP 15.5 mmol/L (5.0-14.0)
== END 2023-06-14 18:38 | disposition home or self-care (01) ==
LOC: JP.ED 16:43
DX: J10.1 Influenza due to other identified influenza virus with other respiratory manifestations (principal); R05.1 Acute cough; I10 Essential (primary) hypertension; J45.909 Unspecified asthma, uncomplicated
CPT/HCPCS: 0241U; 36415; 71046; 80053; 83605; 84145; 85025; 99283; 99285

== ENCOUNTER 2023-06-19 08:33 | Emergency (ER) | payer MEDICAID ==
[2023-06-19 09:16] VITALS: BP 128/85; PULSE 97
== END 2023-06-19 10:28 | disposition home or self-care (01) ==
LOC: JP.ED 08:33
DX: R04.2 Hemoptysis (principal); I10 Essential (primary) hypertension; F17.210 Nicotine dependence, cigarettes, uncomplicated; J45.909 Unspecified asthma, uncomplicated; Z79.899 Other long term (current) drug therapy
CPT/HCPCS: 99283